=== PATIENT | female | born 1985 | race Caucasian/White ===

== ENCOUNTER → 2024-03-19 09:22 | Outpatient (REF) | payer BC, SELFPAY | LOC: WDC 09:22 | PROVIDERS: ATTENDING PHYSICIAN Internal Medicine Hematology & Oncology; FAMILY PHYSICIAN Nurse Practitioner | DX: R92.8 Other abnormal and inconclusive findings on diagnostic imaging of breast (principal); C88.4 Extranodal marginal zone B-cell lymphoma of mucosa-associated lymphoid tissue [MALT-lymphoma] | CPT/HCPCS: 76642; 77062; 77066 ==

== ENCOUNTER → 2024-03-24 07:02 | Outpatient (REF) | payer BC, SELFPAY ==
--- NOTE | 2024-03-24 08:42 | OID.BR.INTR ---
[facility] Breast Navigator - Initial
- -
Date of Contact: 03/24/24
Met with patient. Patient given written information on navigator services available at [facility]. Will follow up as needed per protocol.
== END ==
LOC: WDC 07:02
PROVIDERS: ATTENDING PHYSICIAN Internal Medicine Hematology & Oncology
DX: N63.20 Unspecified lump in the left breast, unspecified quadrant (principal); N63.23 Unspecified lump in the left breast, lower outer quadrant
CPT/HCPCS: 88305; 19083; 77065; 88341; 88342; 88360; A4648

== ENCOUNTER → 2024-04-12 12:54 | Outpatient (REF) | payer BC, SELFPAY | LOC: WDC 12:54 | PROVIDERS: ATTENDING PHYSICIAN Surgery | DX: C50.412 Malignant neoplasm of upper-outer quadrant of left female breast (principal) | CPT/HCPCS: 19285; 38792; 76942; 77065; A4648; A9541 ==

== ENCOUNTER 2024-04-13 06:15 | Day surgery (SDC) | payer BC, SELFPAY ==
[2024-04-07 06:54] VITALS: BMI 27.1
[2024-04-07 08:58] LABS: Hematocrit 45.2 % (37.0-47.0); Hemoglobin 14.8 g/dL (12.0-16.0); Mean Corp Hgb Conc. 32.7 g/dL (33.0-37.0); Mean Corpuscular Hgb 29.4 pg (27.0-31.0); Mean Corpuscular Volume 89.9 fL (81.0-99.0); Mean Platelet Volume 11.2 fL (7.4-10.4); Platelet Count 204 10^3/uL (130-400); Red Blood Cell Count 5.03 10^6/uL (4.20-5.40); Red Cell Dist. Width 12.1 % (11.5-14.5); White Blood Cell Count 5.3 10^3/uL (4.8-10.8)
[2024-04-07 09:05] LABS: ALT (SGPT) 25 U/L (0-35); AST (SGOT) 31 U/L (14-36); Albumin 4.2 g/dl (3.5-5.0); Alkaline Phosphatase 73 U/L (38-126); Blood Urea Nitrogen 11 mg/dl (7-17); Calcium 9.8 mg/dl (8.4-10.2); Carbon Dioxide 21 mmol/L (22-30); Chloride 107 mmol/L (98-107); Estimated Creatinine Clearance 100 ml/min; Glucose 67 mg/dl (70-99); Potassium 4.1 mmol/L (3.5-5.1); Sodium 139 mmol/L (135-145); Total Bilirubin 0.6 mg/dl (0.2-1.3); Total Protein 7.1 g/dl (6.3-8.2); eGFR > 60.00
[2024-04-07 09:29] LABS: Prealbumin (Transthyretin) 26.6 mg/dl (17.6-36.0)
[2024-04-07 09:39] LABS: Vitamin D, 25-OH*** 72.4 ng/mL (30-80)
[2024-04-13 12:10] VITALS: BP 115/73
[2024-04-13 12:16] VITALS: BMI 27.1
[2024-04-13] MEDS: NORMOSOL-R 1000 IV (12:22)
[2024-04-13] MEDS: TYLENOL 1000 MG PO (12:23)
[2024-04-13 15:40] VITALS: BP 106/78; BP 115/73
--- NOTE | 2024-04-13 15:41 | W.IMMPOSTOP ---
Surgical Immed Post Op Note
-
Primary Surgeon: Brian
Assisting Surgeon: None
Pre-op Diagnosis: Left breast ca
Post-op Diagnosis: Same
Procedure Performed: Left localized lumpectomy, sentinel node mapping and biopsy, closure with oncoplastic mastoplasty
Anesthesia Type: General LMA
Specimen / Cultures: Left lumpectomy, sentinel nodes, margins
Estimated Blood Loss: 20cc
Complications: None
Operative Findings: Neg nodes
[place] Node Bx Breast Cancer
[place] Node Bx Breast Cancer
Operation performed with curative intent: Yes
Tracer(s) to ID [place] Nodes in Non-Neoadjuvant setting: Radioactive Tracer
Tracer(s) to ID [place] Nodes in the Neoadjuvant Setting: N/A
All nodes at end of dye-filled Lymphatic Channel removed: N/A
All Significantly Radioactive Nodes were removed: Yes
All Palpably Suspicious Nodes were Removed: Yes
Bx Proven Pos Nodes Marked Prior to Chemo ID'd & Removed: N/A
[2024-04-13 15:45] VITALS: BP 117/72
[2024-04-13 16:00] VITALS: BP 124/76
[2024-04-13 16:19] VITALS: BP 117/77
[2024-04-13 16:37] VITALS: BP 122/78
== END 2024-04-13 17:09 | disposition home or self-care (01) ==
LOC: SDS 06:15
PROVIDERS: ATTENDING PHYSICIAN Surgery; FAMILY PHYSICIAN Nurse Practitioner; OTHER PHYSICIAN Internal Medicine Hematology & Oncology
DX: C50.412 Malignant neoplasm of upper-outer quadrant of left female breast (principal); Z85.79 Personal history of other malignant neoplasms of lymphoid, hematopoietic and related tissues
CPT/HCPCS: 38525; 19301; 38900; 14001; 88305; 88307; 88332; 36415; 76098; 80053; 82306; 84134; 85027; 88331; 88342; A4648

== ENCOUNTER → 2025-03-14 19:02 | Outpatient (REF) | payer BC, SELFPAY | LOC: WDC 19:02 | PROVIDERS: ATTENDING PHYSICIAN Surgery; FAMILY PHYSICIAN Nurse Practitioner | DX: Z12.31 Encounter for screening mammogram for malignant neoplasm of breast (principal); C50.412 Malignant neoplasm of upper-outer quadrant of left female breast | CPT/HCPCS: 77063; 77067 ==

== ENCOUNTER → 2025-11-14 09:42 | Outpatient (REF) | payer BC, SELFPAY | LOC: WDC 09:42 | PROVIDERS: ATTENDING PHYSICIAN Nurse Practitioner Adult Health; FAMILY PHYSICIAN Nurse Practitioner | DX: R92.30 Dense breasts, unspecified (principal); C50.412 Malignant neoplasm of upper-outer quadrant of left female breast | CPT/HCPCS: 76641 ==